=== PATIENT | female | born 1940 | race Caucasian/White ===

== ENCOUNTER 2017-03-21 11:23 | Emergency (ER) | payer MEDICARE, OTHER ==
[2017-03-21] MEDS ORDERED: HYDROmorphone 1 MG/ML 1 ML SYRINGE IM STA (12:00)
[2017-03-21] MEDS ORDERED: ACETAMINOPHEN TAB 500 MG TAB PO STA (12:00)
[2017-03-21] MEDS ORDERED: ONDANSETRON ODT 8 MG TAB.RAPDIS PO STA (12:00)
--- NOTE | 2017-03-21 12:32 | XR ---
EXAMINATION TYPE: XR Hip Complete LT DATE OF EXAM: 03/21/2017 CLINICAL HISTORY: pain TECHNIQUE: AP and frogleg views of the left hip are obtained. COMPARISON: None. FINDINGS: There is no acute fracture/dislocation evident. The joint space appears within normal li mits. The overlying soft tissue appears unremarkable. IMPRESSION: 1. There is no acute fracture or dislocation.ICD 10 NO FRACTURE, INITIAL EVALUATION
--- NOTE | 2017-03-21 12:32 | XR ---
EXAMINATION TYPE: XR lumbar spine 2 or 3V DATE OF EXAM: 03/21/2017 CLINICAL HISTORY: pain TECHNIQUE: Three views of the lumbar spine are submitted. COMPARISON: None. FINDINGS: Moderate rotoscoliosis of the lumbar spine convex to the left. No evidence for compression fracture o r malalignment. Moderate to severe degenerative disc space narrowing and spondylosis. Facet joint art hropathy is seen. IMPRESSION: No acute fracture or dislocation is seen in the lumbar spine. ICD 10 NO FRACTURE, INITIAL EVALUATION
[2017-03-21] MEDS ORDERED: LORATADINE 10 MG TAB PO STA (12:46)
[2017-03-21] MEDS ORDERED: methylPREDNISolone SOD SUCCI 125 MG/2 ML VIAL IM ONE (12:46)
[2017-03-21] MEDS ORDERED: ONDANSETRON ODT 4 MG TAB PO STA (13:44)
--- NOTE | 2017-03-21 13:44 | ED ---
Fall HPI - General Chief Complaint: Fall Stated Complaint: Fall Time Seen by Provider: 03/21/17 11:37 Source: patient Mode of arrival: ambulatory - History of Present Illness Initial Comments: 77 years old female in the ER with her daughter for 2 days ago no complaining about the left pain and pain in the lower back pain does not radiate down the leg. She denies any head injury no neck injury no loss of consciousness no other injuries to any other part of the body she does have some difficulty ambulating which occasionally she do not dressed system is negative for any headaches no neck pain no chest pain or shortness of breath no abdominal pain no frequency urgency dysuria - Related Data Home Medications Medication Instructions Recorded Confirmed Acetaminophen [Tylenol] 325 mg PO Q4H PRN 03/21/17 03/21/17 diphenhydrAMINE & Zinc Cream 1 applic TOPICAL BID PRN 03/21/17 03/21/17 [Benadryl Cream] Previous Rx's Medication Instructions Recorded oxyCODONE-APAP 5-325MG [Percocet 1 tab PO Q12H PRN #20 tab 03/21/17 5-325 mg] predniSONE 20 mg PO DAILY #5 tab 03/21/17 Allergies Allergy/AdvReac Type Severity Reaction Status Date / Time adhesive AdvReac Rash/Hives Verified 03/21/17 11:45 Review of Systems ROS Statement: Those systems with pertinent positive or pertinent negative responses have been documented in the HPI. ROS Other: All systems not noted in ROS Statement are negative. Past Medical History Past Medical History: Diabetes Mellitus, GERD/Reflux, Hyperlipidemia, Musculoskeletal Disorder Additional Past Medical History / Comment(s): DDD,DJD,TMJ History of Any Multi-Drug Resistant Organisms: None Reported Past Surgical History: Appendectomy, Bladder Surgery, Cholecystectomy, Hysterectomy, Orthopedic Surgery Additional Past Surgical History / Comment(s): Bilat. Cataract, Rot. cuff repair Past Anesthesia/Blood Transfusion Reactions: No Reported Reaction Past Psychological History: No Psychological Hx Reported Smoking Status: Never smoker Past Alcohol Use History: None Reported Past Drug Use History: None Reported - Past Family History Brother(s) Family Medical History: Cancer Sister(s) Family Medical History: Cancer General Exam - General Exam Comments Initial Comments: General: The patient is awake and alert, in no distress, and does not appear acutely ill. Skin: Skin is warm and dry and no rashes or lesions are noted. He does have some excoriation handy from scratching Eye: Pupils are equal, round and reactive to light, extra-ocular movements are intact; there is normal conjunctiva bilaterally. Ears, nose, mouth and throat: There are moist mucous membranes and no oral lesions. Neck: The neck is supple, there is no tenderness or JVD. Cardiovascular: There is a regular rate and rhythm. No murmur, rub or gallop is appreciated. Respiratory: To auscultation bilateral, no wheezing no rhonchi no distress respiratory parsons noticed Gastrointestinal: Soft, non-distended, non-tender abdomen without masses or organomegaly noted. There is no rebound or guarding present. Bowel sounds are unremarkable. Back: There is no tenderness to palpation in the midline. There is no obvious deformity. Musculoskeletal she is tender at the left greater trochanter area to deep palpation over mildly tender over the L4 and L5 area as well. No signs of any DVT noticed no neurovascular compromise noticed a Neurological: CN II-XII intact, Cranial nerves III through XII are intact. There are no obvious motor or sensory deficits. Coordination appears grossly intact. Speech is normal. Psychiatric: Cooperative, appropriate mood & affect, normal judgment. Limitations: no limitations Course Vital Signs 03/21/17 03/21/17 11:26 13:53 Temperature 97.4 F L 98.3 F Pulse Rate 87 72 Respiratory 18 16 Rate Blood Pressure 129/88 115/57 O2 Sat by Pulse 95 100 Oximetry - Reevaluation(s) Reevaluation #1: 03/21/17 13:38 X-ray reports were discussed with the patient and the daughter (The lumbar spine ruled out any acute fracture she does have degenerative joint disease of the lumbar spine area. Patient ambulated for me in the room and she was able to ambulate and bear weight on the left side otherwise I plan to do a CT of the left She also complained about some itching I did give her some Claritin and some Solu-Medrol 03/21/17 14:11 She is reassessed at 1410 and she feels fine bouncing on, I advised the daughter to keep an eye on her she did get some Dilaudid for the left hip pain to avoid any falls or any injuries Disposition Clinical Impression: Contusion of left hip, Allergic reaction Disposition: HOME SELF-CARE Condition: Good Instructions: Fall Prevention for Older Adults (ED) Prescriptions: oxyCODONE-APAP 5-325MG [Percocet 5-325 mg] 1 tab PO Q12H PRN #20 tab PRN Reason: Pain predniSONE 20 mg PO DAILY #5 tab Referrals: Wilton Hardy III, MD [Primary Care Provider] - 1-2 days
[2017-03-21 13:54] VITALS: BP 115/57; PULSE 72; RESP 16; TEMP 98.3
== END 2017-03-21 14:19 | disposition home or self-care (01) ==
LOC: EC 11:23
DX: S70.02XA Contusion of left hip, initial encounter (principal); M54.5 Low back pain; T78.40XA Allergy, unspecified, initial encounter; Z91.048 Other nonmedicinal substance allergy status; W19.XXXA Unspecified fall, initial encounter; Y92.009 Unspecified place in unspecified non-institutional (private) residence as the place of occurrence of the external cause
CPT/HCPCS: 72100; 73502; 99283; 96372 ×2; J2930; J1170